=== PATIENT | female | born 1985 | race Caucasian/White ===

== ENCOUNTER 2020-10-06 19:07 | Emergency (ER) | payer BC ==
[~2020-10-06 19:07] MED LIST: ERYTHROMYCIN O3.5 GM OD; LODINE CAP 300300 MG PO; PREDNISONE 20 M20 MG PO
[2020-10-06 20:27] LABS: HEMOGLOBIN 13.7 gm/dl (12.3-15.3); RED BLOOD COUNT 4.43 M/UL (4.00-5.10); WHITE BLOOD COUNT 10.3 K/UL (4.5-11.0)
[2020-10-06 20:50] LABS: BUN/CREATININE RATIO 22 (0-10)
== END 2020-10-06 22:05 | disposition home or self-care (01) ==
LOC: ER1 19:07
PROVIDERS: Emergency Medicine
DX: R07.89 Other chest pain (principal); R06.02 Shortness of breath; E11.9 Type 2 diabetes mellitus without complications; I10 Essential (primary) hypertension; F17.210 Nicotine dependence, cigarettes, uncomplicated; Z79.4 Long term (current) use of insulin
CPT/HCPCS: 71045; 80053; 82550; 82553; 83874; 83880; 84484; 85025; 93005; 99285

== ENCOUNTER → 2020-12-18 | Outpatient (CLI) | payer BC ==
[~2020-12-18] MED LIST changes: +BACTROBAN OINT22 GM EXT; +PERCOCET 5/325 T1 EA PO
== END ==
LOC: HEART 5 10:01
DX: R05 Cough (principal); R06.02 Shortness of breath
CPT/HCPCS: 94060; 94729

== ENCOUNTER 2021-01-22 17:23 | Emergency (ER) | payer OTHER, BC ==
[~2021-01-22 17:23] MED LIST changes: -BACTROBAN OINT22 GM EXT; -PERCOCET 5/325 T1 EA PO
[2021-01-22] MEDS ORDERED: BACTROBAN OINT22 GM EXT (20:42)
[2021-01-22] MEDS ORDERED: PERCOCET 5/325 T1 EA PO (20:42)
== END 2021-01-22 21:00 | disposition home or self-care (01) ==
LOC: ER1 17:23
DX: S40.211A Abrasion of right shoulder, initial encounter (principal); S30.810A Abrasion of lower back and pelvis, initial encounter; S50.811A Abrasion of right forearm, initial encounter; E11.9 Type 2 diabetes mellitus without complications; K21.9 Gastro-esophageal reflux disease without esophagitis; I10 Essential (primary) hypertension; J44.9 Chronic obstructive pulmonary disease, unspecified; Z79.4 Long term (current) use of insulin; Z79.899 Other long term (current) drug therapy; V19.20XA Unspecified pedal cyclist injured in collision with unspecified motor vehicles in nontraffic accident, initial encounter
CPT/HCPCS: 70486; 71046; 73080; 99284

== ENCOUNTER 2021-04-12 23:28 | Emergency (ER) | payer BC ==
[~2021-04-12 23:28] MED LIST changes: +BACTROBAN OINT22 GM EXT; +PERCOCET 5/325 T1 EA PO
[2021-04-13 02:20] LABS: HEMOGLOBIN 12.6 gm/dl (12.3-15.3); RED BLOOD COUNT 4.42 M/UL (4.00-5.10); WHITE BLOOD COUNT 9.1 K/UL (4.5-11.0)
[2021-04-13 02:33] LABS: BUN/CREATININE RATIO 18 (0-10)
== END 2021-04-13 09:25 | disposition home or self-care (01) ==
LOC: ER1 23:28
PROVIDERS: Physician Assistant
DX: E11.65 Type 2 diabetes mellitus with hyperglycemia (principal); I10 Essential (primary) hypertension; J44.9 Chronic obstructive pulmonary disease, unspecified; Z79.899 Other long term (current) drug therapy; Z87.891 Personal history of nicotine dependence; Z20.822 Contact with and (suspected) exposure to COVID-19
CPT/HCPCS: 71045; 80053; 81001; 82962; 84703; 85025; 87086; 96374; 99285; J2405; U0002

== ENCOUNTER 2021-10-30 20:00 | Inpatient (IN) | payer BC ==
[~2021-10-30] VITALS: Ht 162.6 cm; Wt 66.2 kg
[~2021-10-30 20:00] MED LIST changes: +AMOX TR-K CLV1 EAC4 PO; +DIFLUCAN150 MG PO; +IBUPROFEN600 MG PO
[2021-10-30 21:22] LABS: HEMOGLOBIN 12.8 gm/dl (12.3-15.3); RED BLOOD COUNT 4.39 M/UL (4.00-5.10); WHITE BLOOD COUNT 9.9 K/UL (4.5-11.0)
[2021-10-31] MEDS ORDERED: GABAPENTIN800 MG PO (00:21)
[2021-10-31] MEDS ORDERED: HUMALOG100 UNIT/2 SC (00:21)
[2021-10-31 02:34] LABS: BUN/CREATININE RATIO 21 (0-10)
[2021-10-31 07:00] LABS: BUN/CREATININE RATIO 21 (0-10)
[2021-10-31 10:14] LABS: BUN/CREATININE RATIO 20 (0-10)
[2021-11-01 06:00] LABS: HEMOGLOBIN 12.5 gm/dl (12.3-15.3); RED BLOOD COUNT 4.31 M/UL (4.00-5.10)
[2021-11-01 06:30] LABS: BUN/CREATININE RATIO 15 (0-10)
== END 2021-11-01 12:12 | disposition home or self-care (01) | DRG 919 ==
LOC: ER1 20:00 → CCU 22:18 → CDU 22:18 → CCU 10-31 00:19 → MED SURG 4 10-31 11:09
PROVIDERS: Family Medicine; Internal Medicine; ADMIT Internal Medicine
DX: T85.694A Other mechanical complication of insulin pump, initial encounter (principal); E10.10 Type 1 diabetes mellitus with ketoacidosis without coma; E87.1 Hypo-osmolality and hyponatremia; J44.9 Chronic obstructive pulmonary disease, unspecified; Z20.822 Contact with and (suspected) exposure to COVID-19; E87.5 Hyperkalemia; G43.909 Migraine, unspecified, not intractable, without status migrainosus; E10.40 Type 1 diabetes mellitus with diabetic neuropathy, unspecified; Y83.8 Other surgical procedures as the cause of abnormal reaction of the patient, or of later complication, without mention of misadventure at the time of the procedure; F17.210 Nicotine dependence, cigarettes, uncomplicated; Z98.891 History of uterine scar from previous surgery; Z98.890 Other specified postprocedural states; Z79.4 Long term (current) use of insulin
CPT/HCPCS: 36415; 71046; 80048; 80053; 81001; 82009; 82803; 82962; 83605; 83690; 84703; 85025; 96372; 96374; 99285; G0378; J1650; J3480; J7030; U0002